=== PATIENT | female | born 1970 | race Caucasian/White ===

== ENCOUNTER 2017-07-13 19:53 | Emergency (ER) | payer MEDICAID ==
[~2017-07-13] VITALS: Ht 165.1 cm; Wt 88.0 kg
[2017-07-13] MEDS ORDERED: ACETAMINOPHEN 325MG TABLET PO STA (23:38)
[2017-07-13] MEDS ORDERED: TETANUS, DIPHTHERIA, PERTUSSIS VAC/PF 0.5ML (>7YR OLD) IM ONE (23:45)
[2017-07-13] MEDS ORDERED: BACITRACIN ZINC OINT UDPKT TOP ONE (23:45)
[2017-07-14] MEDS ORDERED: APIXABAN 5 MG TABLET PO STA (01:18)
[2017-07-14 02:14] LABS: *BARBITURATES SCREEN URINE NEGATIVE (NEGATIVE); *BENZODIAZEPINES SCREEN URINE NEGATIVE (NEGATIVE); *COCAINE SCREEN URINE NEGATIVE (NEGATIVE); METHADONE URINE SCREEN NEGATIVE (NEGATIVE); OPIATES URINE SCREEN NEGATIVE (NEGATIVE); PHENCYCLIDINE URINE SCREEN NEGATIVE (NEGATIVE)
[2017-07-14 02:27] LABS: *AMPHETAMINES SCREEN URINE PRESUMTIVE POSITIVE (NEGATIVE); CANNABINOID URINE SCREEN PRESUMTIVE POSITIVE (NEGATIVE)
[2017-07-14 03:09] VITALS: BP 119/62
== END 2017-07-14 03:12 | disposition home or self-care (01) ==
LOC: ER 20:25
DX: S02.2XXA Fracture of nasal bones, initial encounter for closed fracture (principal); S00.83XA Contusion of other part of head, initial encounter; F17.200 Nicotine dependence, unspecified, uncomplicated; R11.0 Nausea; Z79.01 Long term (current) use of anticoagulants; Z86.718 Personal history of other venous thrombosis and embolism; Y04.0XXA Assault by unarmed brawl or fight, initial encounter; Y93.89 Activity, other specified; Y92.89 Other specified places as the place of occurrence of the external cause; Y99.8 Other external cause status
CPT/HCPCS: 70450; 70486; 80305; 81025; 84703; 90471; 90715; 99285